=== PATIENT | female | born 1975 | race Caucasian/White ===

== ENCOUNTER → 2016-08-04 | Outpatient (CLI) | payer OTHER ==
[~2016-08-04] MED LIST: BCPILLS
[2016-08-07 03:01] LABS: CHLAMYDIA TRACH RNA*** NOT DETECTED (NOT DETECTED); GC (NEIS GONORRHOEAE)RNA** NOT DETECTED (NOT DETECTED)
== END | disposition home or self-care (01) ==
LOC: C.LABPVFM 15:08
PROVIDERS: ATTEND Nurse Practitioner Family
DX: Z30.9 Encounter for contraceptive management, unspecified (principal)

== ENCOUNTER → 2016-08-04 | Outpatient (CLI) | payer OTHER | END | disposition home or self-care (01) | LOC: C.PAPS 13:16 | PROVIDERS: ATTEND Nurse Practitioner Family | DX: Z12.4 Encounter for screening for malignant neoplasm of cervix (principal) ==

== ENCOUNTER → 2016-11-25 | Outpatient (CLI) | payer OTHER ==
--- NOTE | 2016-11-28 14:26 | MAMMOGRAPHY REPORT ---
BILATERAL DIGITAL SCREENING MAMMOGRAM TOMOSYNTHESIS WITH CAD: 11/25/2016 CLINICAL HISTORY: Routine screening. Patient has no complaints. TECHNIQUE: Breast tomosynthesis in addition to standard 2D mammography was performed. Current study was also evaluated with a Computer Aided Detection (CAD) system. COMPARISON: Comparison is made to exams dated: 09/30/2011 ultrasound and 09/30/2011 mammogram - [facility]. BREAST COMPOSITION: The tissue of both breasts is heterogeneously dense, which may obscure small ma sses. FINDINGS: There is a possible small cluster of calcifications seen within the right superior breast overlying the pectoralis muscle, projecting laterally based on the tomosynthesis images, for which spot magnification views are recommended for further evaluation. There is a nodular 8 mm asymmetry seen within the left superior posterior breast on the MLO view, thought to project laterally based o n the tomosynthesis localizer bar, for which spot compression tomosynthesis views and possible ultra sound are recommended for further evaluation. The remainder of both breasts demonstrate no suspicious masses, calcifications, or areas of architec tural distortion. IMPRESSION: ACR BI-RADS CATEGORY 0: INCOMPLETE EVALUATION: NEED ADDITIONAL IMAGING EVALUATION Right breast calcifications and left breast asymmetry, for which additional imaging evaluation is re commended. The patient will be called to schedule an appointment. Approximately 10% of breast cancers are not detected with mammography. A negative mammographic repor t should not delay biopsy if a clinically suggestive mass is present. Naa Shepard M.D. ah/:11/25/2016 16:17:19 I&C Tech: Chris WIGGINS(Meliza)(M), [facility] letter sent: Addl Imaging 0 BI-RADS Code: ACR BI-RADS Category 0: Incomplete Evaluation: Need Additional Imaging Evaluation
== END | disposition home or self-care (01) ==
LOC: C.MAMM 07:18
PROVIDERS: ATTEND Nurse Practitioner Family
DX: Z12.31 Encounter for screening mammogram for malignant neoplasm of breast (principal); N64.89 Other specified disorders of breast; R92.1 Mammographic calcification found on diagnostic imaging of breast

== ENCOUNTER → 2016-12-13 | Outpatient (CLI) | payer OTHER ==
--- NOTE | 2016-12-13 15:23 | MAMMOGRAPHY REPORT ---
BILATERAL DIGITAL DIAGNOSTIC MAMMOGRAM TOMOSYNTHESIS AND TARGETED LEFT ULTRASOUND: 12/13/2016 CLINICAL HISTORY: 41-year-old woman called back from screening mammography for right breast microcal cifications and left breast asymmetry. TECHNIQUE: Spot magnification right CC and ML, spot compression tomosynthesis left CC and MLO views were obtained. COMPARISON: Comparison is made to exams dated: 11/25/2016 mammogram, 09/30/2011 ultrasound, and 2 mammogram - [facility]. BREAST COMPOSITION: The tissue of both breasts is heterogeneously dense, which may obscure small ma sses. FINDINGS: There is a small grouping of 4 pleomorphic microcalcifications in the upper outer far pos terior right breast that were not identified on prior mammograms including an exaggerated lateral ri ght CC view from 09/30/2011. They measure approximately 4.6 mm in maximum dimension. No definite a ssociated mass or architectural distortion. Given the interval development these might calcificatio ns are indeterminate, warranting further evaluation with tissue sampling. Given the far posterior l ocation on both views they may be difficult to sampled via stereotactic biopsy. Nevertheless, we wi ll attempt stereotactic biopsy and if they are not amenable to percutaneous biopsy given the positio n, surgical excisional biopsy may be needed. The spot compression views of the left breast demonstrate partial effacement of the asymmetry in the posterior breast, along the posterior nipple line on the MLO view. However, further evaluation wit h ultrasound was performed given the dense breasts. Targeted ultrasound was performed throughout the left breast with particular attention to the 8:00 t hrough 11:00, 1:00 through 4:00 and retroareolar axes. In the 11:00 left breast, 2 cm from the nipp le, there is a cyst cluster with 2 dominant benign anechoic simple cysts measuring 8.6 x 6.1 x 7.1 m m in conglomerate. In the 12:00 left breast, 2 cm from the nipple, there is a circumscribed anechoi c benign stable cyst with posterior acoustic enhancement measuring 10.7 x 6.9 x 11.8 mm. Another sm aller anechoic benign simple cyst with posterior acoustic enhancement is identified in the 12:30 lef t breast, 2 cm from the nipple, measuring 4.1 x 4.3 x 3.3 mm. There is a another cyst cluster in th e 3:00 left breast, 3 cm from the nipple, measuring 9.1 x 4.1 x 8.1 mm. Another anechoic benign sim ple cyst is identified in the 5:00 left breast, 1 cm from the nipple, measuring 6.6 x 4.1 x 8.3 mm. No suspicious solid masses identified. It is unclear which of these cysts may correlate with the m ammographic asymmetry, nevertheless these findings are compatible with benign fibrocystic changes. IMPRESSION: ACR BI-RADS CATEGORY 4: SUSPICIOUS, TARGETED ULTRASOUND ACR BI-RADS CATEGORY 4: SUSPICI OUS 1. Right breast stereotactic guided biopsy is recommended for an indeterminate grouping of somewhat pleomorphic microcalcifications in the upper outer posterior right breast. If the calcifications a re not amenable to stereotactic biopsy given the far posterior location, surgical excisional biopsy may be needed. 2. An asymmetry in the posterior left breast likely correlates with one of the several benign simpl e cysts seen on ultrasound throughout the left breast. These findings are compatible with benign fi brocystic changes and no further close follow-up is needed at this time. These results and recommendations were discussed with the patient at the time of the exam. She tent atively scheduled the right breast biopsy prior to leaving our department. Approximately 10% of breast cancers are not detected with mammography. A negative mammographic repor t should not delay biopsy if a clinically suggestive mass is present. Emma Uriarte M.D. ay/:12/13/2016 11:14:09 Rough Carpenter: Evelyn Levine, [facility] letter sent: Abnormal 4/5 BI-RADS Code: ACR BI-RADS Category 4: Suspicious Ultrasound BI-RADS: ACR BI-RADS Category 4: Suspic ious
== END | disposition home or self-care (01) ==
LOC: C.MAMM 09:50
PROVIDERS: ATTEND Nurse Practitioner Family
DX: R92.0 Mammographic microcalcification found on diagnostic imaging of breast (principal); N64.89 Other specified disorders of breast

== ENCOUNTER → 2016-12-20 | Outpatient (CLI) | payer OTHER ==
--- NOTE | 2016-12-20 13:38 | Discharge Instructions ---
Discharge Instructions Procedure Procedure Date: December 20, 2016. Reason for visit: Right Calcifications. Discharge Discharge Date: December 20, 2016. Discharge Diagnosis: post right breast stereotactic guided biopsy Instructions Activity Recommendations: Additional Limitations (see below) Return to School/Work: no limitations Recommended Home Diet: No Limitations Provider Instructions: ACTIVITY RECOMMENDATIONS: * No lifting, pushing, pulling or exercising the affected side for three days. RETURN TO SCHOOL/WORK: * You may return to work/school after the procedure, but do not perform any strenuous activities for 24 to 48 hours. MEDICATIONS: * Tylenol (two 325 mg) every four to six hours if needed for mild pain (if not allergic to Tylenol). DIET: * Resume previous diet. SPECIAL CARE INSTRUCTIONS: * Keep biopsy site dry for 24 hours. May shower after 24 hours, but do not soak (bathe) incision. * May remove Tegaderm (plastic patch) tomorrow AFTER showering. * Leave the steri-strips on for one week. Allow the steri-strips to fall off by themselves. If not off after one week, you may remove them. You may place a Bandaid crosswise over the strips, if desired. * Apply ice 10 minutes on and 10 minutes off as needed. * Wear a bra at bedtime to sleep more comfortably for 2-3 days. * Your referring physician should have the results after approximately 5 to 7 business days. * Call for unusual bleeding, fever, drainage, etc or if you have any questions call [phone] during normal business hours or after hours call Dr Uriarte, . FOLLOW UP VISIT: Follow-up with Referring Physician as scheduled. Allergies Coded Allergies: No Known Allergies (Unverified Allergy, Mild, 03/31/06) Hola Joseph Recommendations: Call your doctor if: * Temperature above 101 degrees * Pain not relieved by pain medicine ordered * There is increased drainage or redness from any incision * You have any unanswered questions or concerns. Your Doctors Instructions noted above were prepared by provider Emma Uriarte. Patient Signature Section: Patient Instructions Signature Page Misty Carrion Patient (or Guardian) Signature/Date: I have read and understand the instructions given to me by my caregivers. Caregiver/RN/Doctor Signature/Date: The above-named patient and/or guardian has received patient instructions on this date. + Original Patient Signature Page (only) stays with chart. Please make copy for patient.
--- NOTE | 2016-12-20 14:58 | MAMMOGRAPHY REPORT ---
STEREOTACTIC GUIDED BIOPSY RIGHT BREAST: 12/20/2016 CLINICAL HISTORY: Stereotactic guided biopsy of a cluster of indeterminate microcalcifications in th e upper outer far posterior right breast. COMPARISON: Comparison is made to exams dated: 12/13/2016 ultrasound, 12/13/2016 mammogram, 11/25/2016 mammogram, 09/30/2011 ultrasound, and 09/30/2011 mammogram - [facility]. PATIENT CONSENT: After explaining the risks, benefits and alternatives of the procedure to the patie nt, informed consent was obtained both verbally and in writing. Specific risks include: Bleeding, i nfection, puncture of adjacent structure, pain, nontarget biopsy, sampling error, metal allergy and medication reaction. PROCEDURE DESCRIPTION: A time-out was performed and the right breast was confirmed as the site of bi opsy. The patient was placed prone on the stereotactic biopsy table and the breast was placed in lat eralmedial compression. The patient's right arm was placed through the aperture in the table as we ll, to obtain more posterior and lateral tissue within the [id number]. A metal riveter image was obtaine d that demonstrated the clustered microcalcifications in question. They are amenable to sterotactic biopsy. Then +15 and -15 stereo pair images were obtained. The calcifications were targeted utili zing the coordinates obtained by the computer. The skin was prepped with Betadine. 1% Lidocaine wit h and without epinipherine was administered as local anesthesia. A small skin incision was made. Th rough the incision, the needle was inserted to the depth determined by the computer. 7 samples were obtained using a [employer] 9-gauge vacuum-assisted biopsy device. The specimen radiograph de monstrated several traffic representative microcalcifications, therefore, a metallic marker was placed at th e biopsy site. There was no immediate complication. Hemostasis was achieved after several minutes of manual compression. The samples were sent to pathology in two appropriately labeled containers, "w ith calcifications" and "without calcifications". All of the samples were obtained from the same sin gle biopsy site. Postprocedure CC, XCCL and ML views of the right breast were obtained. There is a new metallic bio psy marker and no significant hematoma in the far lateral, far posterior and superior right breast, at the site of the biopsied clustered calcifications in question. IMPRESSION: STEREOTACTIC GUIDED BIOPSY Status post right breast stereotactic guided biopsy of clustered microcalcifications in the far late ral, posterior and superior right breast, with biopsy marker placed at the site. The patient will receive notification of the biopsy results from her referring physician. Emma Uriarte M.D. ay/:12/20/2016 13:59:32 Attending Technologist: Evelyn Dumont RT(R)(M), [facility] Color Shop Helper: Chris Gomes RT(R)(M), [facility]
--- NOTE | 2016-12-20 14:58 | MAMMOGRAPHY REPORT ---
UNILATERAL RIGHT DIGITAL DIAGNOSTIC MAMMOGRAM: 12/20/2016 CLINICAL HISTORY: Status post right breast stereotactic guided biopsy of a small cluster of microcal cifications in the upper outer far posterior breast. Please refer to the report from right breast stereotactic guided biopsy performed at the same time f or full detail. IMPRESSION: POST PROCEDURE IMAGING FOR MARKER PLACEMENT Please refer to the report from right breast stereotactic guided biopsy performed at the same time f or full detail. Approximately 10% of breast cancers are not detected with mammography. A negative mammographic repor t should not delay biopsy if a clinically suggestive mass is present. Emma Uriarte M.D. ay/:12/20/2016 13:40:04 Mileage Clerk: Chris WIGGINS(R)(M), [facility] BI-RADS Code: Post Procedure Imaging For Marker Placement
== END | disposition home or self-care (01) ==
LOC: C.MAMM 12:44
PROVIDERS: ATTEND Nurse Practitioner Family
DX: R92.0 Mammographic microcalcification found on diagnostic imaging of breast (principal)